=== PATIENT | female | born 1970 | race Caucasian/White ===

== ENCOUNTER 2017-10-07 10:30 | Observation (INO) | payer MEDICARE ==
[~2017-10-07] VITALS: Ht 157.5 cm; Wt 48.5 kg
[2017-10-07 11:16] LABS: Basophils # (auto) 0.1 uL; Eosinophils # (auto) 0 uL
[2017-10-07 11:17] LABS: Basophils % (auto) 0.4 % (0.0-2.0); Hematocrit 18.7 % (36.0-46.0); Lymphocytes # (auto) 1.1 uL; Lymphocytes % (auto) 5.5 % (10.0-50.0); Mean Corpuscular Hemoglobin 20.3 pg (28.0-32.0); Mean Corpuscular Hgb Conc. 29.7 g/dL (32.0-36.0); Mean Corpuscular Volume 68.1 fL (80.0-100.0); Mean Platelet Volume 8.5 fL (6.9-10.8); Monocytes # (auto) 0.7 uL; Monocytes % (auto) 3.3 % (0.0-12.0); Neutrophils # (auto) 18.2 uL; Neutrophils % (auto) 90.8 % (37.0-80.0); Nucleated Red Blood Cells % 0.1 %; Platelet Count (auto) 401 10^3/uL (140-450); White Blood Cell 20.1 10^3/uL (4.4-10.8)
[2017-10-07 11:23] LABS: Red Cell Distribution Width 22.1 % (11.8-14.3)
[2017-10-07 11:24] LABS: Hemoglobin 5.6 g/dL (12.2-16.2)
[2017-10-07] MEDS ORDERED: SODIUM CHLORIDE 0.9% 1,000 ML IVB ONE (11:27)
[2017-10-07 11:39] LABS: Albumin 3.1 g/dL (3.4-5.0); Alkaline Phosphatase 48 U/L (45-117); Anion Gap 9 (5-15); Aspartate Aminotransferase 20 U/L (15-37); BUN/Creatinine Ratio 35.4; Bilirubin, Total 0.6 mg/dL (0.2-1.0); Blood Urea Nitrogen 29 mg/dL (7-18); Calcium 9.2 mg/dL (8.5-10.1); Carbon Dioxide 25 mmol/L (21-32); Chloride 101 mmol/L (98-107); GFR African American 95 mL/min; GFR Non-African American 79 mL/min; Glucose 140 mg/dL (74-106); Potassium 4.1 mmol/L (3.5-5.1); Sodium 135 mmol/L (136-145); Total Protein 6.8 g/dL (6.4-8.2)
[2017-10-07 12:00] LABS: Anisocytosis Moderate; Giant Platelets Few; Ovalocytes MODERATE; Platelet Estimate Adequate; Polychromasia Slight; Tear Drop Cells FEW
[2017-10-07 12:01] LABS: Large Platelets MODERATE
[2017-10-07 12:12] VITALS: BP 89/38
[2017-10-07] MEDS ORDERED: PHYTONADIONE (VIT K)10 MG/ML 1ML VIAL SUBCUT ONE (12:15)
[2017-10-07 12:48] LABS: INR > 10 (0.9-1.15)
[2017-10-07 13:02] LABS: Urine Bilirubin Negative (Negative); Urine Blood Negative /uL (Negative); Urine Color Yellow (Yellow); Urine Glucose Normal (Normal); Urine Ketone Negative (Negative); Urine Mucus FEW (None Seen); Urine Nitrite Negative (Negative); Urine RBC <1 /hpf (0 - 4); Urine Urobilinogen Normal (Negative); Urine pH 5.5 (5.0-8.0)
== END 2017-10-07 12:41 | disposition short-term general hospital (02) | DRG 84 ==
LOC: ER 10:30 → OVERFLOW 11:29 → ER 12:32
PROVIDERS: ADMIT Family Medicine; ATTEND Family Medicine
DX: S06.5X9A Traumatic subdural hemorrhage with loss of consciousness of unspecified duration, initial encounter (principal); F17.200 Nicotine dependence, unspecified, uncomplicated; J45.909 Unspecified asthma, uncomplicated; Z82.49 Family history of ischemic heart disease and other diseases of the circulatory system; W01.0XXA Fall on same level from slipping, tripping and stumbling without subsequent striking against object, initial encounter; Y93.89 Activity, other specified; Y92.89 Other specified places as the place of occurrence of the external cause; Y99.8 Other external cause status
CPT/HCPCS: 36415; 70450; 70486; 71010; 80053; 81001; 83735; 84484; 85025; 85610; 85730; 86850; 86900; 86901; 86920; 93005; 96360; 96372; 99291; G0378; J3430; J7030; J7040; P9016